=== PATIENT | female | born 1985 | race Caucasian/White ===

== ENCOUNTER 2023-04-16 19:49 | Emergency (ER) | payer BC, SELFPAY ==
[2023-04-16 19:51] VITALS: BP 181/119; BMI 42.6
[2023-04-16 20:05] LABS: % Basophils 0.3 % (0-2); % Eosinophils 1.1 % (0-6); % Immature Granulocytes 0.2 % (0-0.5); % Lymphocytes 28.7 % (20.5-51.1); % Neutrophils 60.7 % (42.2-75.2); Absolute Eosinophils 0.1 10^3/uL (0-0.7); Absolute Lymphocytes 3.5 10^3/uL (1.2-3.4); Absolute Monocytes 1.1 10^3/uL (0.1-0.6); Absolute Neutrophils 7.4 10^3/uL (1.4-6.5); Hematocrit 40.5 % (37.0-47.0); Hemoglobin 14.6 g/dL (12.0-16.0); Mean Corpuscular Hgb 30.4 pg (27.0-31.0); Mean Corpuscular Volume 84.2 fL (81.0-99.0); Mean Platelet Volume 10.3 fL (7.4-10.4); Nucleated Red Blood Cells % 0 %; Platelet Count 390 10^3/uL (130-400); Red Blood Cell Count 4.81 10^6/uL (4.20-5.40); Red Cell Dist. Width 12.4 % (11.5-14.5); White Blood Cell Count 12.1 10^3/uL (4.8-10.8)
[2023-04-16 20:19] LABS: ALT (SGPT) 55 U/L (0-35); AST (SGOT) 47 U/L (14-36); Albumin 5.1 g/dl (3.5-5.0); Alkaline Phosphatase 162 U/L (38-126); Blood Urea Nitrogen 8 mg/dl (7-17); Calcium 9.8 mg/dl (8.4-10.2); Carbon Dioxide 26 mmol/L (22-30); Chloride 98 mmol/L (98-107); Estimated Creatinine Clearance > 125 ml/min; Glucose 114 mg/dl (70-99); Potassium 3.4 mmol/L (3.5-5.1); Sodium 135 mmol/L (135-145); Total Bilirubin 1.1 mg/dl (0.2-1.3); Total Protein 8.4 g/dl (6.3-8.2); eGFR > 60.00
[2023-04-16] MEDS: PEPCID 20 MG IV (21:10)
[2023-04-16] MEDS: BENADRYL 25 MG IV (21:10)
[2023-04-16 21:42] VITALS: BP 136/78
--- NOTE | 2023-04-16 21:52 | ED.GENMED ---
History of Present Illness
<Madonna Hoffmann MD - Last Filed: 04/16/23 21:53>
General
Chief Complaint: Allergic Reaction
Time Seen by Provider: 04/16/23 21:07
Travel History
Have you had any contact with someone who has COVID-19?: No
Do you have any symptoms of coronavirus? Fever > 100 degrees, chills, cough, shortness of breath, sore throat, loss of taste or smell, muscle aches, or headache?: No
<Kenneth Augustine PA-C - Last Filed: 04/16/23 22:57>
General
Source: patient
History of Present Illness
History of Present Illness:
37-year-old female presents complaining of tingling sensation in her tongue and throat shortly after eating instant potatoes. She states she feels out of it. Symptoms seem to worsen en route. No rash. No chest pain. No vomiting. No headache.
No other complaints at this time
<Kenneth Augustine PA-C - Last Filed: 04/16/23 22:57>
Physical Exam
Physical Exam:
General: Anxious appearing female no acute respiratory distress
HEENT: Normocephalic atraumatic posterior pharynx without erythema neck is supple tongue is not swollen no trismus or drooling no stridor
Heart: Tachycardic but regular
Lungs: Clear no stridor or wheeze
Skin: Warm no rash or lesions
Abdomen is soft nontender nondistended no guarding rebound normal bowel sounds
Course
<Madonna Hoffmann MD - Last Filed: 04/16/23 21:53>
Orders/Labs/Results
Orders:
Orders
04/16/23 19:59
Complete Blood Count/With Diff Urgent
Comprehensive Metabolic Panel Urgent
04/16/23 20:59
Diphenhydramine [Benadryl] 50 mg .ROUTE .STK-MED ONE
EPINEPHrine PF [Adrenalin] 1 mg .ROUTE .STK-MED ONE
Famotidine [Pepcid] 20 mg .ROUTE .STK-MED ONE
04/16/23 21:08
Famotidine [Pepcid] 20 mg IV NOW STA
04/16/23 21:09
Diphenhydramine [Benadryl] 25 mg IV NOW STA
Abnormal Lab Results
04/16/23
19:59
WBC 12.1 H 10^3/uL
(4.8-10.8)
Absolute Neuts (auto) 7.4 H 10^3/uL
(1.4-6.5)
Absolute Lymphs (auto) 3.5 H 10^3/uL
(1.2-3.4)
Absolute Monos (auto) 1.1 H 10^3/uL
(0.1-0.6)
Potassium 3.4 L mmol/L
(3.5-5.1)
Glucose 114 H mg/dl
(70-99)
AST 47 H U/L
(14-36)
ALT 55 H U/L
(0-35)
Alkaline Phosphatase 162 H U/L
(38-126)
Total Protein 8.4 H g/dl
(6.3-8.2)
Albumin 5.1 H g/dl
(3.5-5.0)
04/16/23 19:59
04/16/23 19:59
Vital Signs
Initial and Last Documented VS:
Initial Vital Signs
Temp Pulse Resp BP Pulse Ox
98 F 95 20 181/119 99
04/16/23 19:51 04/16/23 19:51 04/16/23 19:51 04/16/23 19:51 04/16/23 19:51
Last Documented Vital Signs
Temp Pulse Resp BP Pulse Ox
98 F 92 21 143/91 94
04/16/23 19:51 04/16/23 22:15 04/16/23 22:15 04/16/23 22:00 04/16/23 22:15
<Kenneth Augustine PA-C - Last Filed: 04/16/23 22:57>
Orders/Labs/Results
Orders:
Orders
04/16/23 19:59
Complete Blood Count/With Diff Urgent
Comprehensive Metabolic Panel Urgent
04/16/23 20:59
Diphenhydramine [Benadryl] 50 mg .ROUTE .STK-MED ONE
EPINEPHrine PF [Adrenalin] 1 mg .ROUTE .STK-MED ONE
Famotidine [Pepcid] 20 mg .ROUTE .STK-MED ONE
04/16/23 21:08
Famotidine [Pepcid] 20 mg IV NOW STA
04/16/23 21:09
Diphenhydramine [Benadryl] 25 mg IV NOW STA
Abnormal Lab Results
04/16/23
19:59
WBC 12.1 H 10^3/uL
(4.8-10.8)
Absolute Neuts (auto) 7.4 H 10^3/uL
(1.4-6.5)
Absolute Lymphs (auto) 3.5 H 10^3/uL
(1.2-3.4)
Absolute Monos (auto) 1.1 H 10^3/uL
(0.1-0.6)
Potassium 3.4 L mmol/L
(3.5-5.1)
Glucose 114 H mg/dl
(70-99)
AST 47 H U/L
(14-36)
ALT 55 H U/L
(0-35)
Alkaline Phosphatase 162 H U/L
(38-126)
Total Protein 8.4 H g/dl
(6.3-8.2)
Albumin 5.1 H g/dl
(3.5-5.0)
04/16/23 19:59
04/16/23 19:59
Vital Signs
Initial and Last Documented VS:
Initial Vital Signs
Temp Pulse Resp BP Pulse Ox
98 F 95 20 181/119 99
04/16/23 19:51 04/16/23 19:51 04/16/23 19:51 04/16/23 19:51 04/16/23 19:51
Last Documented Vital Signs
Temp Pulse Resp BP Pulse Ox
98 F 92 21 143/91 94
04/16/23 19:51 04/16/23 22:15 04/16/23 22:15 04/16/23 22:00 04/16/23 22:15
<Kenneth Augustine PA-C - Last Filed: 04/16/23 22:57>
MDM/Problems Addressed
Differential Diagnosis Includes:
Tingling sensation in tongue and throat after eating potato flakes. No respiratory distress no rash or vomiting. Given Benadryl and Pepcid through triage. Will check labs. No indication for any epinephrine at this time. Will observe after
medication
<Kenneth Augustine PA-C - Last Filed: 04/16/23 22:57>
*Critical Care Note
Total Time (30-74mins, 75-104mins- exclusive of procedures): Not Applicable
<Kenneth Augustine PA-C - Last Filed: 04/16/23 22:57>
Update Note
Update Note:
Patient feeling much better with time and after Benadryl administration. No respiratory distress vital signs remained stable. Suspect possible adverse reaction to food or packaging or preservatives used in food. Recommended throwing the packaged
food away. Continue Benadryl at home. Follow-up with family doctor.
ED Attending Note
<Madonna Hoffmann MD - Last Filed: 04/16/23 21:53>
ED Attending Note
Patient seen and examined by attending physician: Yes
I performed the substantive portion of visit, reviewed & personally made and approve the management plan that is documented in note by myself or SERGE.: Yes
ED Attending Note:
Patient evaluated by me. Story sounds as though there is some type of toxin in the potato flakes. Patient appears slightly flushed and tachycardic, describing tingling in her mouth. She has no stridor. She is controlling her secretions well.
She has no sign of tongue, lip or uvular swelling.
-
Portions of this chart may have been created with voice recognition software.� Occasional wrong word or��sound alike� substitutions may have occurred due to the inherent limitations of voice recognition software.
Discharge Plan
Departure
Patient Disposition: Home (Routine Discharge)
Date of Disposition: 04/16/23
Time of Disposition: 22:55
Patient with high blood pressure during this ER visit?: No
Discharge Problem:
Allergic reaction
Instructions: Hives (DC)
Referrals:
UNKNOWN - PT DOES,NOT KNOW [Family Provider] -
Activity Restrictions/Additional Instructions:
You may continue with Benadryl if needed. Drink plenty of fluids. Return for worsening symptoms otherwise follow-up with family doctor
Interventions
Interventions:
*Risk Screen - Suicide Last Done: 04/16/23 19:51
*Neglect/Abuse Screening Last Done: 04/16/23 19:51
ED- Fall Risk Assessment Last Done: 04/16/23 21:11
*ED COVID-19 Vaccine History Last Done: 04/16/23 19:51
ED- Cardiac Assessment Last Done: 04/16/23 21:11
ED- Pulmonary Assessment Last Done: 04/16/23 21:11
ED-Skin Assessment Last Done: 04/16/23 21:11
[2023-04-16 22:00] VITALS: BP 143/91
== END 2023-04-16 23:13 | disposition home or self-care (01) ==
LOC: EMR 19:49
PROVIDERS: Emergency Medicine; EMERGENCY PHYSICIAN Emergency Medicine
DX: R20.2 Paresthesia of skin (principal); R00.0 Tachycardia, unspecified; T78.40XA Allergy, unspecified, initial encounter
CPT/HCPCS: 99284; 96374; 80053; 85025

== ENCOUNTER 2023-10-30 18:01 | Emergency (ER) | payer BC, SELFPAY ==
[2023-10-30 18:11] VITALS: BP 176/130
[2023-10-30] MEDS: RABAVERT RABIES VACC W-DILUENT 2.5 UNIT IM (20:25)
[2023-10-30] MEDS: HyperRAB 2728 UNIT IM (20:26)
--- NOTE | 2023-10-30 20:31 | ED.GENMED ---
History of Present Illness
General
Chief Complaint: Rabies
Source: patient
Exam Limitations: none
Time Seen by Provider: 10/30/23 19:10
Nursing documentation reviewed up to this point in time: agreed with
History of Present Illness
History of Present Illness:
38-year-old female with history as documented presents for evaluation for rabies prophylaxis. Last night patient awoke to a in bedroom. No bite noted. Able to titi the bat outside. Referred to the ER for rabies prophylaxis. No physical
complaints noted. No prior history of rabies vaccination.
Review of Systems
Review of Systems
All Other Systems: ROS reviewed and negative except as documented in HPI and ROS
Skin: Reports other (Denies bite wound)
Phy Exam
Physical Exam
Physical Exam:
General: Well appearing and non-toxic
HEENT: protecting airway
Neck: appears supple
CV: No evidence of cyanosis
Resp: No accessory muscle use
Abd: Non-distended
Extremities: No deformities
Neuro: Alert
Psych: Normal affect
Skin: Intact
Scores
Heart Failure Risk
Heart Failure Risk Score: Not Applicable
Heart Score for Chest Pain Patients
STEMI patient?: Not applicable
Withdrawal Assessment of Alcohol
Withdrawal Assessment Completed?: Not applicable
Course
Orders/Labs/Results
Orders:
Orders
10/30/23 19:47
Rabies Immune Globulin/Pf [HyperRAB] 2,728 unit IM NOW STA
10/30/23 20:00
Rabies Vaccine (Pcec)/Pf [Rabavert Rabies Vacc W-Diluent] 2.5 unit IM .ONCE ONE
Vital Signs
Initial and Last Documented VS:
Initial Vital Signs
Temp Pulse Resp BP Pulse Ox
36.7 C 117 18 176/130 99
10/30/23 18:11 10/30/23 18:11 10/30/23 18:11 10/30/23 18:11 10/30/23 18:11
Last Documented Vital Signs
Temp Pulse Resp BP Pulse Ox
36.7 C 117 18 176/130 99
10/30/23 18:11 10/30/23 18:11 10/30/23 18:11 10/30/23 18:11 10/30/23 18:11
MDM/Problems Addressed
Differential Diagnosis Includes:
Rabies exposure
MDM/Problems Addressed:
38-year-old female presents for rabies prophylaxis after potential rabies exposure�woke up with a bat in the house. No bite noted, no physical complaints. No prior rabies vaccination. Will provide rabies immunoglobulin and vaccination. Provided
instructions on additional steps of the vaccine series. Noted to be hypertensive here suspect likely stress related due to possible rabies exposure. Spoke with patient about her elevated blood pressure she will monitor and follow-up with PCP. All
questions answered.
Acute Exacerbation and/or Progression of Chronic Illness:
Acutely hypertensive�no signs or symptoms of hypertensive emergency, suspect stress related. Monitor for now but no emergent antihypertensive indicated at present.
Acute Exacerbation and/or Progression of Chronic Illness: HTN
*Pulse Oximetry
Patient hypoxic: no
*Critical Care Note
Total Time (30-74mins, 75-104mins- exclusive of procedures): Not Applicable
Data Reviewed
Source: patient
ED Attending Note
-
Portions of this chart may have been created with voice recognition software.� Occasional wrong word or��sound alike� substitutions may have occurred due to the inherent limitations of voice recognition software.
Discharge Plan
Departure
Patient Disposition: Home (Routine Discharge)
Date of Disposition: 10/30/23
Time of Disposition: 19:46
Patient with high blood pressure during this ER visit?: Yes
Discharge Problem:
Rabies, need for prophylactic vaccination against
Instructions: Rabies
Prescriptions:
New
RabAvert (PF) 2.5 unit Suspension For Reconstitution
1 ml IM . DIRECTED Qty: 3 0RF
Rx Instructions:
See Rabies Vaccine Post Exposure Prophylaxis Instruction Sheet for Dosing Instructions
Stand Alone Forms: Rabies Vaccine Post Exp Dosing
Activity Restrictions/Additional Instructions:
Thank you for visiting the Emergency Department at [facility].
1. Please schedule a follow up appointment as directed. Call first thing tomorrow morning to make an appointment.
2. If indicated, please take your medications as instructed and indicated on discharge paperwork.
3. If any of your symptoms do not improve, or persist, or become more severe within 6-12 hours, please return to the emergency department for further care.
4. Please return to the emergency department if you develop a headache, neck pain/stiffness, fever greater than 100.4F, chest pain, shortness of breath, persistent nausea, vomiting, slurred speech, difficulty walking, numbness/tingling, weakness,
signs of infection or any other symptoms that are worrisome to you.
Please call [phone] if you have any questions.
Discharge Date and Time
Print Language: MAORI
[2023-10-30 20:56] VITALS: BP 149/98
== END 2023-10-30 21:10 | disposition home or self-care (01) ==
LOC: EMR 18:01
PROVIDERS: EMERGENCY PHYSICIAN Emergency Medicine
DX: Z20.3 Contact with and (suspected) exposure to rabies (principal); Z23 Encounter for immunization; R03.0 Elevated blood-pressure reading, without diagnosis of hypertension; G43.909 Migraine, unspecified, not intractable, without status migrainosus; E07.9 Disorder of thyroid, unspecified; F90.9 Attention-deficit hyperactivity disorder, unspecified type; Z91.018 Allergy to other foods
CPT/HCPCS: 99284; 90471; 96372; 90375; 90675

== ENCOUNTER 2023-11-02 09:37 | Emergency (ER) | payer BC, SELFPAY ==
[2023-11-02 09:38] VITALS: BP 163/103
[2023-11-02 09:55] VITALS: BMI 30.3
--- NOTE | 2023-11-02 09:57 | ED.GENMED ---
History of Present Illness
General
Chief Complaint: Rabies
Source: patient
Exam Limitations: none
Time Seen by Provider: 11/02/23 09:47
Nursing documentation reviewed up to this point in time: agreed with
History of Present Illness
History of Present Illness:
38-year-old female presenting for second rabies vaccination. Found a bat in the house 3 days ago had the first dose and immunoglobulin a few days ago. Denies additional concerns at this time.
Review of Systems
Review of Systems
Allergies reviewed?: Yes
All Other Systems: ROS reviewed and negative except as documented in HPI and ROS
Phy Exam
Physical Exam
Physical Exam:
GENERAL: Alert , in no apparent distress
EYE: pupils equal and reactive
NECK: Supple, no significant adenopathy.
ENT: o/p clr, mmm.
NEUROLOGICAL: Alert and oriented, no focal neuro deficits
SKIN: Warm and dry, skin intact.
MUSCULOSKELETAL: No edema, well perfused.
PSYCH: Normal and appropriate interaction.
Course
Orders/Labs/Results
Orders:
Orders
11/02/23 10:15
Rabies Vaccine (Pcec)/Pf [Rabavert Rabies Vacc W-Diluent] 2.5 unit IM .ONCE ONE
Vital Signs
Initial and Last Documented VS:
Initial Vital Signs
Temp Pulse Resp BP Pulse Ox
98.7 F 92 18 163/103 97
11/02/23 09:38 11/02/23 09:38 11/02/23 09:38 11/02/23 09:38 11/02/23 09:38
Last Documented Vital Signs
Temp Pulse Resp BP Pulse Ox
98.7 F 92 18 163/103 97
11/02/23 09:38 11/02/23 09:38 11/02/23 09:38 11/02/23 09:38 11/02/23 09:38
MDM/Problems Addressed
MDM/Problems Addressed:
38-year-old female presenting for rabies vaccination. No additional concerns stable for discharge.
*Critical Care Note
Total Time (30-74mins, 75-104mins- exclusive of procedures): Not Applicable
ED Attending Note
-
Portions of this chart may have been created with voice recognition software.� Occasional wrong word or��sound alike� substitutions may have occurred due to the inherent limitations of voice recognition software.
Discharge Plan
Departure
Patient Disposition: Home (Routine Discharge)
Date of Disposition: 11/02/23
Time of Disposition: 10:03
Patient with high blood pressure during this ER visit?: Yes
Condition: Good
Covid-19: Not Applicable
Discharge Problem:
Exposure to bat without known bite
Instructions: BLOOD PRESSURE, Rabies
Prescriptions:
No Action
RabAvert (PF) 2.5 unit Suspension For Reconstitution
1 ml IM . DIRECTED Qty: 3 0RF
Rx Instructions:
See Rabies Vaccine Post Exposure Prophylaxis Instruction Sheet for Dosing Instructions
Referrals:
PRIVATE,PHYSICIAN [Family Provider] -
Stand Alone Forms: Rabies Vaccine Post Exp Dosing
Activity Restrictions/Additional Instructions:
You came to the emergency department today for subsequent rabies vaccination. Please follow-up with the infusion center on the subsequent dates. Return to the emergency department for any worsening, new or concerning symptoms.
Interventions
Interventions:
*Risk Screen - Suicide Last Done: 11/02/23 10:41
*General Assessment Last Done: 11/02/23 10:41
*Neglect/Abuse Screening Last Done: 11/02/23 10:41
ED- Fall Risk Assessment Last Done: 11/02/23 10:41
*ED COVID-19 Vaccine History Last Done: 11/02/23 10:41
*Nursing Disposition Last Done: 11/02/23 10:41
Discharge Date and Time
Discharge Date/Time: 11/02/23 10:43
Print Language: [id number]
[2023-11-02] MEDS: RABAVERT RABIES VACC W-DILUENT 2.5 UNIT IM (10:25)
== END 2023-11-02 10:43 | disposition home or self-care (01) ==
LOC: EMR 09:37
PROVIDERS: EMERGENCY PHYSICIAN Student in an Organized Health Care Education/Training Program
DX: Z20.3 Contact with and (suspected) exposure to rabies (principal); Z23 Encounter for immunization
CPT/HCPCS: 99281; 90471; 90675

== ENCOUNTER 2023-11-06 13:59 | Outpatient (RCR) | payer BC, SELFPAY ==
[2023-11-06 14:08] VITALS: BP 162/105
[2023-11-06] MEDS: RABAVERT RABIES VACC W-DILUENT 2.5 UNIT IM (14:21)
== END 2023-11-06 15:49 | disposition home or self-care (01) ==
LOC: OID 13:59
PROVIDERS: ATTENDING PHYSICIAN Emergency Medicine
DX: Z23 Encounter for immunization (principal); Z20.3 Contact with and (suspected) exposure to rabies
CPT/HCPCS: 90471; 90675

== ENCOUNTER 2023-11-13 13:57 | Outpatient (RCR) | payer BC, SELFPAY ==
[2023-11-13 14:00] VITALS: BP 164/100
[2023-11-13] MEDS: RABAVERT RABIES VACC W-DILUENT 2.5 UNIT IM (14:21)
== END 2023-11-14 11:29 | disposition home or self-care (01) ==
LOC: OID 13:57
PROVIDERS: ATTENDING PHYSICIAN Emergency Medicine
DX: Z20.3 Contact with and (suspected) exposure to rabies (principal); Z23 Encounter for immunization
CPT/HCPCS: 90471; 90675